=== PATIENT | male | born 1960 | race Caucasian/White ===

== ENCOUNTER 2025-02-24 10:50 | Outpatient (OUT) | payer BC, OTHER, SELFPAY ==
--- OUTSIDE RECORDS SUMMARY | 2025-02-23 23:59 | XMS_ITS | Continuity of Care Document ---
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(Discharge Diagnosis) - 02/23/25 Shortness of breath(Discharge Diagnosis) - 02/23/25 Smoker(Discharge Diagnosis) - 02/23/25 BMI < 18.5(Discharge Diagnosis) - 02/23/25 Discharge Disposition: Home (Routine DC) Attending Physician: Gina Rodrigues Encounter Type: Clinic Allergies, Adverse Reactions, Alerts No Known Allergies Immunizations Given and Recorded Vaccine Date Status Refusal Reason SARS-CoV-2 (COVID-19) mRNA BNT-162b2 vax 1 03/14/21 Recorded SARS-CoV-2 (COVID-19) mRNA BNT-162b2 vax 2 02/21/21 Recorded 1Result Comment: 2023-02-04: TPV60 2Result Comment: 2023-02-04: TPV60 Medications Advair HFA 115 mcg-21 mcg/inh inhalation aerosol with adapter See Instructions, 12 EA, Refill(s) 11, INHALE 2 PUFFS BY MOUTH TWICE A DAY, [id number], 169, cm, 11/12/23 8:21:00 EDT, Height/Length Dosing, 51.8, kg, 11/12/23 8:21:00 EDT, Weight Dosing Start Date: 06/21/24 Status: Ordered Quantity: 12.0 Unit: EA Repeat number: 1 Albuterol (Eqv-Ventolin HFA) 90 mcg/inh inhalation aerosol See Instructions, 18 EA, Refill(s) 0, INHALE 2 PUFFS EVERY 4 HOURS NEEDED FOR SHORTNESS OF BREATH/ WHEEZING, [id number], 169, cm, 02/02/25 11:39:00 EDT, Height/Length Dosing, 48.5, kg, 02/02/25 11:39:00 EDT, Weight Dosing Start Date: 02/13/25 Status: Ordered Quantity: 18.0 Unit: EA Repeat number: 1 esomeprazole 40 mg Cap-EC 40 mg = 1 cap(s), Oral, Daily, # 90 cap(s), Refills(s) 0, Pharmacy: [facility]/pharmacy #[id number], 169, cm, 02/02/25 11:39:00 EDT, Height/Length Dosing, 48.5, kg, 02/02/25 11:39:00 EDT, Weight Dosing Start Date: 02/13/25 Status: Ordered Quantity: 90.0 Unit: cap(s) Repeat number: 1 NEBULIZER SUPPLIES NEBULIZER SUPPLIES, See Instructions, 1 EA, 3, Nebulizer machine tubing/ mask supplies dx. J43.9, [facility]/pharmacy #[id number], Supply, 169, cm, 11/12/23 8:21:00 EDT, Height/Length Dosing, 51.8, kg, 11/12/23 8:21:00 EDT, Weight Dosing Start Date: 01/18/24 Status: Ordered Quantity: 1.0 Unit: EA Repeat number: 4 Nexium 40 mg Cap-EC See Instructions, TAKE 1 CAPSULE BY MOUTH EVERY DAY, # 90 cap(s), Refills(s) 3, Pharmacy: [facility] [id number], 169, cm, 02/02/25 11:39:00 EDT, Height/Length Dosing, 48.5, kg, 02/02/25 11:39:00 EDT, Weight Dosing Start Date: 02/13/25 Status: Ordered Quantity: 90.0 Unit: cap(s) Repeat number: 1 Portable O2 with supplies Portable O2 with supplies, See Instructions, 1 EA, 0, Use when leaving the house, Supply Start Date: 11/12/23 Status: Ordered Quantity: 1.0 Unit: EA Repeat number: 1 Indications: Body mass index [BMI] 19.9 or less, adult; Nicotine dependence, unspecified, uncomplicated; Problem List Condition Confirmation Course Effective Dates Status Health St atus Informant COPD Confirmed Resolved Oxygen dependent Confirmed Active Shortness of breath Confirmed Active Excessive weight loss Confirmed Active Chronic GERD Confirmed Active H/O chest tube placement Confirmed Active COPD with emphysema Confirmed Active Procedures Procedure Date Related Diagnosis Body Site Status Radiofrequency denervation o f spinal facet joint of lumbar vertebra 1 09/03/12 Completed Injection of sacroiliac join t using fluoroscopic guidance 2 05/31/12 Complete d Epidural injection of lumbar spine using fluoroscopic guidance 3 09/29/11 Co mpleted Radiofrequency denervation o f spinal facet joint of lumbar vertebra 4 08/04/11 Completed Injection of facet joint usi ng fluoroscopic guidance 5 06/27/11 Complete d Injection of facet joint usi ng fluoroscopic guidance 6 05/08/11 Complete d Epidural injection of lumbar spine using fluoroscopic guidance 7 04/10/11 Co mpleted Epidural injection of lumbar spine using fluoroscopic guidance 8 12/25/10 Co mpleted abdominal sugery Complete d Cardiac catheterization C ompleted Cardiovascular stress testing Completed Hemorrhoidectomy Complete d hernia repair Completed History of shoulder surgery 9 Completed 1right L3-L5 2right 3L5-S1 4right L3-S1 5right L3-S1 6right L3-S1 7right L5-S1 8right L5-S1 9right Social History Social History Type Response Smoking Status 5-9 cigarettes (betw een 1/4 to 1/2 pack)/day in last 30 days; Concerns about tobacco use in household: No entered on: 02/23/25 Sex Male Sex Representation Male (finding) Patient Care team information Care Team Personnel Name: Shae Kauffman Position: [employer]: Claims Followup Rep (Erick) Member Role: [employer]: Claims Followup Rep (Erick) Name: Gina Rodrigues Position: [facility] - Primary Care - [facility] Member Role: Primary Care Physician Address: [address] [place] [address]- Telecom: Care Team Related Persons Name: MORALES SALEEM Insurance Providers Guarantor name: TRIP CAMARENA Health Plan Information #: 1 Payer: Medicaid Payer Identifier: [id number] Member Number: [id number] Group Number: [id number] Subscriber Identifier: [id number] Relationship to Subscriber: Self Coverage Type: MEDICAID Coverage Verification Date: NA Telecom: [phone] Address: [address] [place], [place] [address] Health Plan Information #: 2 Payer: MEDICARE [employer] Payer Identifier: [id number] Member Number: [id number] Group Number: devoted Subscriber Identifier: [id number] Relationship to Subscriber: Self Coverage Type: MEDICARE Coverage Verification Date: NA Telecom: NA Address: [address] [place] [id number]
== END 2025-02-24 10:51 | disposition home or self-care (01) ==
LOC: CARD 10:50
PROVIDERS: PCP Nurse Practitioner; Visit Provider Nurse Practitioner
DX: R06.02 Shortness of breath (principal); Z99.81 Dependence on supplemental oxygen; J44.9 Chronic obstructive pulmonary disease, unspecified
CPT/HCPCS: 94618